=== PATIENT | male | born 1935 | race Caucasian/White ===

== ENCOUNTER → 2022-02-03 13:02 | Outpatient (BNVA) | payer MEDICARE, OTHER, SELFPAY | PROVIDERS: PCP Internal Medicine; Visit Provider Psychiatry & Neurology Neurology | DX: F03.90 Unspecified dementia, unspecified severity, without behavioral disturbance, psychotic disturbance, mood disturbance, and anxiety (principal); R26.9 Unspecified abnormalities of gait and mobility; Z79.899 Other long term (current) drug therapy | CPT/HCPCS: 99212 ==

== ENCOUNTER → 2022-05-06 13:12 | Outpatient (BNVA) | payer MEDICARE, OTHER, SELFPAY | PROVIDERS: PCP Internal Medicine; Visit Provider Psychiatry & Neurology Neurology | DX: F03.90 Unspecified dementia, unspecified severity, without behavioral disturbance, psychotic disturbance, mood disturbance, and anxiety (principal); R26.9 Unspecified abnormalities of gait and mobility | CPT/HCPCS: 99212 ==

== ENCOUNTER → 2023-01-31 13:30 | Outpatient (BNVA) | payer MEDICARE, OTHER, SELFPAY | PROVIDERS: PCP Internal Medicine; Visit Provider Psychiatry & Neurology Neurology | DX: F03.90 Unspecified dementia, unspecified severity, without behavioral disturbance, psychotic disturbance, mood disturbance, and anxiety (principal); R26.9 Unspecified abnormalities of gait and mobility | CPT/HCPCS: 99212 ==

== ENCOUNTER 2023-06-07 10:35 | Outpatient (AMB) | payer MEDICARE, OTHER, SELFPAY ==
--- NOTE | 2023-06-07 10:41 | MHC.OFFVIS ---
Intake Vital Signs 06/07/23 10:46 Height 5 ft 9 in Weight 194 lb 2 oz BMI 28.7 BP 112/68 Blood Pressure Location Rt brachial Position Sitting Respiration 15 Pulse 64 Pulse Source Pulse Oximeter Pulse Oximetry (%) 97 Oxygen Delivery Method Room Air Intake Visit Reasons: 4 mo f/u for Dementia Intake Note: Patient presents for follow up dementia. patient states he's been doing pretty good , stable. Had a fall about 3 weeks ago because he reached too far. No injuries were sustained with this fall. Granddaughter Victoria is his historian today. She is requesting PT/OT services as she thinks this may be helpful. Allergies Penicillins Allergy (Mild, Verified 06/07/23 10:45) Hives Sulfa (Sulfonamide Antibiotics) Allergy (Mild, Verified 06/07/23 10:45) Rash Medication List - Last Reconciled 06/07/23 by Sumaya Black MD amlodipine 10 mg PO DAILY carbidopa-levodopa 25-100 mg (Sinemet) 1 tab PO BID escitalopram oxalate 10 mg PO DAILY memantine (Namenda) 10 mg PO BID rivaroxaban (Xarelto) 20 mg PO QPM tamsulosin 0.4 mg PO DAILY trazodone 25 mg PO BEDTIME HPI HPI Comments History of Present Illness Details 87y/o male comes for follow up of his dementia, gait disorder issues. He walks slow , had 1 fall when he reached over from his bed . His behavior is good, he eats OK He works on cross word puzzles , helps around the house Mood is stable Independent in most ADLs. He does not exercise.He sleeps 14 hrs a day. Walking is slower. He has been better with personal hygiene. [facility] Medical History Prostate hypertrophy Pulmonary embolism Spinal stenosis Irritable bowel syndrome Depression Hyperlipidemia Surgical History History of hernia repair History of carotid endarterectomy Hx of cholecystectomy Social History Household Members: Spouse Alcohol intake: never Tobacco use type: Cigar Physical Exam Vital Signs: Last Vital Signs Pulse 64 06/07/23 10:46 Resp 15 06/07/23 10:46 BP 112/68 06/07/23 10:46 Pulse Ox 97 06/07/23 10:46 Oxygen Delivery Method Room Air 06/07/23 10:46 BMI result Body Mass Index 28.7 Const General: cooperative Nutritional Appearance: average body habitus Orientation/consciousness: patient oriented x3 Eyes Pupils: Equal, round and reactive pupils present Neuro Other: very mild bradykinesia follows commands General: patient oriented x3, tone normal and moves all extremities Cranial nerves: Yes Equal, round and reactive pupils present, Yes Bilaterally intact EOM present, Yes Normal facial strength present and Yes Midline tongue present Gait exam (Neuro): Other gait observations present (slow ) Assessment & Plan Assessment & Plan (1) Dementia: Code(s): F03.90 - Unspecified dementia, unspecified severity, without behavioral disturbance, psychotic disturbance, mood disturbance, and anxiety (2) Gait disorder: Code(s): R26.9 - Unspecified abnormalities of gait and mobility Plan Continue namenda 10mg bid sinemet 25/100 bid schedule exercise everyday in the morning. Orders: Orders PT Evaluation and Treatment Today R26.9 - Unspecified abnormalities of gait and mobility Coding Level of Care Code Est Pt Level 4 (12949) Diagnoses Dementia F03.90 Gait disorder R26.9
[2023-06-07 10:46] VITALS: BP 112/68; PULSE 64; RESP 15; O2SAT 97; BMI 28.7
== END 2023-06-07 11:02 | disposition home or self-care (01) ==
PROVIDERS: PCP Internal Medicine; Visit Provider Psychiatry & Neurology Neurology
DX: F03.90 Unspecified dementia, unspecified severity, without behavioral disturbance, psychotic disturbance, mood disturbance, and anxiety (principal); R26.9 Unspecified abnormalities of gait and mobility
CPT/HCPCS: 99214

== ENCOUNTER → 2023-06-07 10:35 | Outpatient (BNVA) | payer MEDICARE, OTHER, SELFPAY | PROVIDERS: PCP Internal Medicine; Visit Provider Psychiatry & Neurology Neurology | DX: F03.90 Unspecified dementia, unspecified severity, without behavioral disturbance, psychotic disturbance, mood disturbance, and anxiety (principal); R26.9 Unspecified abnormalities of gait and mobility; Z79.899 Other long term (current) drug therapy | CPT/HCPCS: 99212 ==

== ENCOUNTER 2024-05-17 15:23 | Outpatient (AMB) | payer MEDICARE, OTHER, SELFPAY ==
--- NOTE | 2024-05-17 15:26 | A.OFFVIS_ITS ---
Vital Signs 05/17/24 15:30 Height 5 ft 9 in Weight 195 lb 8 oz BMI 28.9 BP 100/60 Blood Pressure Location Rt brachial Position Sitting Pulse 79 Pulse Source Pulse Oximeter Pulse Oximetry (%) 96 Oxygen Delivery Method Room Air Intake Visit Reasons: Follow up Intake Note: Patient presents for a 11 mo f/u- Dementia/Gait Disorder. Sheet Tailer Required: No Accompanied by: Other Relationship Allergies Penicillins Allergy (Mild, Verified 05/17/24 15:27) Hives Sulfa (Sulfonamide Antibiotics) Allergy (Mild, Verified 05/17/24 15:27) Rash HPI Comments Details: 88y/o male comes for follow up of his dementia, gait disorder issues. 1 month ago he woke up and was unable to sit up and stand - looked like he forgot how to get up . The whole day he was unstable and off balance. He has been fine since then He walks slow . His behavior is good, he eats OK He gets upset with his clinical trial assistant when she requests him to do some activities. He works on cross word puzzles , helps around the house Mood is stable Independent in most ADLs.He sleeps 14 hrs a day. Walking is slower. He has been better with personal hygiene. 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 [facility] Medical History Prostate hypertrophy Pulmonary embolism Spinal stenosis Irritable bowel syndrome Depression Hyperlipidemia Surgical History History of hernia repair History of carotid endarterectomy Hx of cholecystectomy Social History Household Members: Spouse Alcohol intake: never Tobacco use type: Cigar Physical Exam Vital Signs: Last Vital Signs Pulse 79 05/17/24 15:30 BP 100/60 05/17/24 15:30 Pulse Ox 96 05/17/24 15:30 Oxygen Delivery Method Room Air 05/17/24 15:30 BMI result Body Mass Index 28.9 Const General: cooperative Nutritional Appearance: average body habitus Orientation/consciousness: patient oriented x3 Eyes Pupils: Equal, round and reactive pupils present Neuro Other: very mild bradykinesia follows commands right UE rest tremors Mild off balance General: patient oriented x3, tone normal and moves all extremities Cranial nerves: Yes Equal, round and reactive pupils present, Yes Bilaterally intact EOM present, Yes Normal facial strength present and Yes Midline tongue present Gait exam (Neuro): Other gait observations present (slow ) Assessment & Plan Assessment & Plan (1) Dementia: Code(s): F03.90 - Unspecified dementia, unspecified severity, without behavioral disturbance, psychotic disturbance, mood disturbance, and anxiety Category: Medical (2) Gait disorder: Code(s): R26.9 - Unspecified abnormalities of gait and mobility Category: Medical Plan Continue namenda 10mg bid sinemet 25/100 bid use cane consistently schedule exercise everyday in the morning. Coding Level of Care Code Est Pt Level 4 (27029) Diagnoses Dementia F03.90 Gait disorder R26.9
[2024-05-17 15:30] VITALS: BP 100/60; PULSE 79; O2SAT 96; BMI 28.9
== END 2024-05-17 15:53 | disposition home or self-care (01) ==
PROVIDERS: PCP Internal Medicine; Visit Provider Psychiatry & Neurology Neurology
DX: F03.90 Unspecified dementia, unspecified severity, without behavioral disturbance, psychotic disturbance, mood disturbance, and anxiety (principal); R26.9 Unspecified abnormalities of gait and mobility
CPT/HCPCS: 99214

== ENCOUNTER → 2024-05-17 15:23 | Outpatient (BNVA) | payer MEDICARE, OTHER, SELFPAY | PROVIDERS: PCP Internal Medicine; Visit Provider Psychiatry & Neurology Neurology | DX: F03.90 Unspecified dementia, unspecified severity, without behavioral disturbance, psychotic disturbance, mood disturbance, and anxiety (principal); R26.9 Unspecified abnormalities of gait and mobility | CPT/HCPCS: 99212 ==

== ENCOUNTER 2024-12-20 14:55 | Outpatient (AMB) | payer MEDICARE, OTHER, SELFPAY ==
--- NOTE | 2024-12-20 15:11 | A.OFFVIS_ITS ---
Vital Signs 12/20/24 15:12 Height 5 ft 9 in Weight 194 lb BMI 28.6 BP 106/72 Blood Pressure Location Rt brachial Position Sitting Pulse 73 Pulse Source Pulse Oximeter Pulse Oximetry (%) 95 Oxygen Delivery Method Room Air Intake Visit Reasons: Follow up 6mo-LVM Intake Note: Patient presents for dementia Allergies Penicillins Allergy (Mild, Verified 05/17/24 15:27) Hives Sulfa (Sulfonamide Antibiotics) Allergy (Mild, Verified 05/17/24 15:27) Rash HPI Comments Details: 89y/o male comes for follow up of his dementia, gait disorder issues. He is accompanied by his family friend today . He had 1 fall down the stairs at home ( night ) .He had another fall 1 week ago in a restaurant. There was also an episode of confusion, mumbling lasting for 2 days last week. His behavior is good, he eats OK He gets upset when his Farideh talks about exercising He works on cross word puzzles , helps around the house Mood is stable Independent in most ADLs.He sleeps 14 hrs a day. Walking is slower. He has been better with personal hygiene. 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 [facility] Medical History Prostate hypertrophy Pulmonary embolism Spinal stenosis Irritable bowel syndrome Depression Hyperlipidemia Surgical History History of hernia repair History of carotid endarterectomy Hx of cholecystectomy Social History Household Members: Spouse Alcohol intake: never Tobacco use type: Cigar Physical Exam Vital Signs: Last Vital Signs Pulse 73 12/20/24 15:12 BP 106/72 12/20/24 15:12 Pulse Ox 95 12/20/24 15:12 Oxygen Delivery Method Room Air 12/20/24 15:12 BMI result Body Mass Index 28.6 Const General: cooperative Nutritional Appearance: average body habitus Orientation/consciousness: patient oriented x3 Eyes Pupils: Equal, round and reactive pupils present Neuro Other: very mild bradykinesia follows commands No tremors today Mild off balance, slow General: patient oriented x3, tone normal and moves all extremities Cranial nerves: Yes Equal, round and reactive pupils present, Yes Bilaterally intact EOM present, Yes Normal facial strength present and Yes Midline tongue present Cognition (Neuro): abnormal cognition Gait exam (Neuro): Other gait observations present (slow ) Orientation What is the (year) (season) (date) (day) (month)?: month Where are we (state) (county) (town or city) (hospital) (floor)?: state, town or city, hospital/clinic and floor Registration Name of 3 unrelated objects clearly and slowly, then ask patient to repeat all 3 of them. (1st repeat determines score. Make sure they can repeat all three): object 1, object 2 and object 3 Attention & Calculation (CHOOSE ONE) Spell WORLD backwards (DLROW): 5 letters Language Show patient a wristwatch & ask what it is. Repeat for pencil.: watch and pencil Ask the patient to 'take a piece of paper with their right hand' 'fold paper in half' 'place paper on floor': take paper in right hand and fold paper in half Print the sentence 'CLOSE YOUR EYES' on a piece. If patient actually closes eyes then score.: followed written direction Give patient a blank piece of paper & ask to write a sentence. Score if it contains a noun & verb.: sentence contains subject and verb Score Score: 19 Assessment & Plan Assessment & Plan (1) Dementia: Code(s): F03.90 - Unspecified dementia, unspecified severity, without behavioral disturbance, psychotic disturbance, mood disturbance, and anxiety Category: Medical Qualifiers: Dementia type: unspecified type Dementia severity: moderate Dementia behavioral or psychological symptom: without behavioral, psychotic, or mood disturbance or anxiety Qualified Code(s): F03.B0 - Unspecified dementia, moderate, without behavioral disturbance, psychotic disturbance, mood disturbance, and anxiety (2) Gait disorder: Code(s): R26.9 - Unspecified abnormalities of gait and mobility Category: Medical Plan Continue namenda 10mg bid sinemet 25/100 bid use cane consistently Limit exercise to brief perioids due to spinal stenosis Coding Level of Care Code Est Pt Level 4 (76416) Complex EM visit Add On G2211 Diagnoses Moderate dementia without behavioral disturbance, psychotic disturbance, mood disturbance, or anxiety, unspecified dementia type F03.B0 Dementia type: unspecified type Dementia severity: moderate Dementia behavioral or psychological symptom: without behavioral, psychotic, or mood disturbance or anxiety Gait disorder R26.9
[2024-12-20 15:12] VITALS: BP 106/72; PULSE 73; O2SAT 95; BMI 28.6
== END 2024-12-20 15:36 | disposition home or self-care (01) ==
LOC: HO.HSMS 14:56
PROVIDERS: PCP Internal Medicine; Visit Provider Psychiatry & Neurology Neurology
DX: F03.B0 Unspecified dementia, moderate, without behavioral disturbance, psychotic disturbance, mood disturbance, and anxiety (principal); R26.9 Unspecified abnormalities of gait and mobility
CPT/HCPCS: 99214; G2211

== ENCOUNTER → 2024-12-20 14:55 | Outpatient (BNVA) | payer MEDICARE, OTHER, SELFPAY | PROVIDERS: PCP Internal Medicine; Visit Provider Psychiatry & Neurology Neurology | DX: R26.9 Unspecified abnormalities of gait and mobility (principal); F03.B0 Unspecified dementia, moderate, without behavioral disturbance, psychotic disturbance, mood disturbance, and anxiety | CPT/HCPCS: 99212 ==

== ENCOUNTER 2025-06-24 15:06 | Outpatient (AMB) | payer MEDICARE, OTHER, SELFPAY ==
--- OUTSIDE RECORDS SUMMARY | 2024-05-09 12:00 | XMS_ITS ---
Author Organization [facility] Address [address] [place] [address] Care Team Providers Care Mold Hoister Name Role Phone Christy Franco Primary Care Provider UnavailOseas Roberts Unavailable [phone] Encounters Encounter Location Date Provider Diagnosis [facility] [address] [place] [phone] 05/09/2024 Oseas Tineo Plan Of Treatment Next Appt Details Provider Name:Oseas Tineo , 08/08/2025 03:00:00 PM, [address] [place] [address], [phone], Progress Notes * Manny MONTESDOB:1935 (89 yo M)Acc No.[id number]:05/09/2024 Progress Note Patient: Katharina GUNNValerieManny Provider: Donis Tineo DPM :1935 A ge:88 Y S ex:Male Date:05/09/2024 Address:[address] [place], [place] [address] [phone] Pcp:Christy Franco Subjective: * Chief Complaints: * * Medical History: Objective: * Vitals: Assessment: Plan: * Treatment: * Images: * The named appointment provid er may or may not be the originator of this progress note, and it is not deemed complete until electronically signed by the appointment provider. Sign off status: Pending * Provider: Donis Tineo DPM Date: 0 05/09/2024 Generated for David lau/Sheba on: 1 06:28 PM EDT
--- NOTE | 2025-06-24 15:11 | MHC.OFFVIS ---
Vital Signs 06/24/25 15:11 06/24/25 15:15 Height 5 ft 9 in 5 ft 9 in Weight 196 lb 4 oz BMI 29.0 BP 112/70 Blood Pressure Location Lt brachial Rt brachial Position Sitting Sitting Pulse 83 Pulse Source Pulse Oximeter Pulse Oximeter Pulse Oximetry (%) 96 Oxygen Delivery Method Room Air Room Air Intake Visit Reasons: 6 mo follow up Intake Note: Patient presents follow up Dementia Superintendent [employer] Required: No Accompanied by: Friend of the family Allergies Penicillins Allergy (Mild, Verified 06/24/25 15:15) Hives Sulfa (Sulfonamide Antibiotics) Allergy (Mild, Verified 06/24/25 15:15) Rash HPI Comments Details: 89y/o male comes for follow up of his dementia, and gait disorder issues. He is accompanied by his family friend Roxanne who helps with history. H/O Parkinsons disease on sinemet / CD/LD 1 tablet BID. PCP Christy Luke in 2024 He forgets to lift his r. foot, has bilateral edema, family notices he is dragging the foot, with pauses, and shuffling of feet. He denies falls. He has gait instability and leans to the right as if he will fall over. His recently broke her sacrum, and his children are now living with them for 24 hour on-going care. His eyes are puffy, retaining water and he does not have allergies. He is a good sleeper, can sleep for 14 hours. He has bph and wakes up 2x a night for bathroom breaks. He gets confused, forgets, repeats then mumbles for days. He has sun downing, mood is stable, good behavior. Denies drooling. He has dysphagia to solids, mainly rice. Needs to have liquids mixed with the rice. He can swallow, he has to chew slowly. He walks around the house though is not very active. He works on cross word puzzles, helps around the house. RLS denies Independent in most ADLs with supervision and assistance from WELDING LEAD BURNER, he is able to dress, shower, and feed himself. Walking is slower. Ambulates without devices, cane, or rolling walker. [facility] Medical History Prostate hypertrophy Pulmonary embolism Spinal stenosis Irritable bowel syndrome Depression Hyperlipidemia Surgical History History of hernia repair History of carotid endarterectomy Hx of cholecystectomy Social History Household Members: Spouse Alcohol intake: never Tobacco use type: Cigar Review of Systems ENT Reports Normal hearing present Neuro Reports Normal hearing present Physical Exam Vital Signs: Last Vital Signs Pulse 83 06/24/25 15:15 BP 112/70 06/24/25 15:15 Pulse Ox 96 06/24/25 15:15 Oxygen Delivery Method Room Air 06/24/25 15:15 BMI result Body Mass Index 29.0 Const General: cooperative Nutritional Appearance: average body habitus Orientation/consciousness: oriented to place Eyes Pupils: Equal, round and reactive pupils present Neuro Other: very mild bradykinesia Rigidity in bilateral upper ext. follows commands No tremors today hand alternating movements decreased foot taps decreased off balance, stooped posture leans to the right, shuffling of feet, slow to turn. General: oriented to place, tone normal and moves all extremities Cranial nerves: Yes Equal, round and reactive pupils present, Yes Bilaterally intact EOM present, Yes Normal facial strength present, Yes Midline tongue present, Yes Normal hearing present, Yes Ability to bilaterally rotate head present and Yes Ability to bilaterally elevate shoulders present Cognition (Neuro): abnormal cognition Gait exam (Neuro): Shuffling gait present and Other gait observations present (slow ) Motor exam (neuro): Abnormal motor strength present and Abnormal muscle tone present Coordination: [id number] test normal (dysmetria) Psych Appearance: well kempt Speech and movement: Slowed movement present (Neuro) Attitude: cooperative Thought content: Normal thought content present Insight: Fair insight present (Psych) Judgement: Fair judgement present (Psych) Assessment & Plan Assessment & Plan (1) Gait disorder: Code(s): R26.9 - Unspecified abnormalities of gait and mobility Category: Medical (2) Spinal stenosis: Code(s): M48.00 - Spinal stenosis, site unspecified Category: Medical Qualifiers: Spinal region: lumbar Neurogenic claudication status: unspecified Qualified Code(s): M48.061 - Spinal stenosis, lumbar region without neurogenic claudication (3) Excessive daytime sleepiness: Code(s): G47.19 - Other hypersomnia Category: Medical Plan AD Continue namenda 10mg bid, may increase to 14mg po BID if HCP agrees. Parkinsons disorder sinemet 25/100 bid to TID if HCP agrees. use cane consistently Limit exercise to brief periods due to spinal stenosis PT -2x a Roxanne will work with him at home as tolerable, low intensity, gentle exercises. Shuffling of feet and leaning to the right- balance- gait instability start PT labs to complete will request recent labs from his pcp Christy Pham 3month f/u Orders: Orders Complete Blood Count no Diff Today G47.19 - Other hypersomnia Hemoglobin A1c Today G47.19 - Other hypersomnia Vitamin B12 and Folate Today G47.19 - Other hypersomnia TSH reflex Free T4 Today G47.19 - Other hypersomnia PT Evaluation and Treatment Today M48.00 - Spinal stenosis, site unspecified, R26.9 - Unspecified abnormalities of gait and mobility Comprehensive Met. Panel Today G47.19 - Other hypersomnia Ferritin Today G47.19 - Other hypersomnia Methylmalonic Acid Today G47.19 - Other hypersomnia, G47.9 - Sleep disorder, unspecified, R53.83 - Other fatigue IRON PROFILE Today G47.19 - Other hypersomnia, G47.9 - Sleep disorder, unspecified, R53.83 - Other fatigue Homocysteine Today G47.19 - Other hypersomnia, G47.9 - Sleep disorder, unspecified, R53.83 - Other fatigue Lipid Panel with Reflex Today G47.19 - Other hypersomnia Vitamin D 25-OH Total Today G47.19 - Other hypersomnia Parathyroid Hormone Intact Today G47.19 - Other hypersomnia Patient Instructions: Sleep Hygiene provided: set a scheduled bedtime and wake time to help regulate the circadian rhythm and balance the release of pituitary hormones. Sleep in a dark room, temperatures below 68 degrees, and no devices n bed. Limit caffeinated products 6 hours prior to bed, and limit fluids 2-4 hours prior to bed. Gentle night yoga, diffusing essential oils, and playing soft music can be relaxing. Coding Level of Care Code Est Pt Level 4 (30743) Diagnoses Gait disorder R26.9 Spinal stenosis of lumbar region, unspecified whether neurogenic claudication present M48.061 Spinal region: lumbar Neurogenic claudication status: unspecified Excessive daytime sleepiness G47.19
[2025-06-24 15:15] VITALS: BP 112/70; PULSE 83; O2SAT 96; BMI 29.0
--- OUTSIDE RECORDS SUMMARY | 2025-06-24 18:29 | XMS_ITS | Patient Health Record ---
Author Organization [facility] Address [address] [place] [address] Care Team Providers Care Records Management Clerk Name Role Phone Christy Franco Primary Care Provider Oseas Jones Unavailable [phone] Allergies Allergen (clinical drug ingredient) Drug/Non Drug Allergy documented on EMR Reaction Allergy Type Onset Date Status Penicillin Unknown Drug Allergy Active Substance with sulfonamide structure and antibacterial mechanism of action (substance) Sulfa Antibiotics hives Drug Allergy Active Reason For Referral No Information Medications Medication SIG (Take, Route, Frequency, Duration) Notes Start Date End Date Status Tamsulosin HCl Activ e Memantine HCl Active Escitalopram Oxalate 10 MG 1 tablet Orally Once a day Active Carbidopa Active Ammonium Lactate 12 % 1 application Externally to affected areas of dry skin to feet except for between the toes Twice a day; Duration: 30 days Not-Taking Xarelto 20 MG 1 tablet with food Orally Once a day Active traZODone HCl 50 MG 1 tablet at bedtime as needed Orally Once a day Active Immunizations Vaccine Route Administration Date Status Comme nts Influenza Unknown 05/01/2024 Administered Social History Tobacco Use: Social History Observation Description Date Details (start date - stop date) Never Smoker NA - NA Alcohol Screen Question Answer Notes Did you have a drink containing alcohol in the p ast year? No Points 0 Interpretation Negative Tobacco use other than smoking: Question Answer Notes Are you an other tobacco user? No Tobacco Control (Standard) Question Answer Notes Tobacco use: Nonsmoker Additional Findings: Tobacco non-user Current no nsmoker AUDIT-C (Standard) Question Answer Notes Did you have a drink containing alcohol in the p ast year? No Points 0 Interpretation Negative Problems Problem Type SNOMED Code ICD Code Onset Dates Problem Status W/U Status Risk Notes Problem Bilateral atherosclerosis of arteries of lower limbs (disorder) ([id number] ) Atherosclerosis of hoopa artery of both lower extremities, with unspecified presence of clinical manifestation (I70.203) Active confirmed Q7(A), Q8(2B), Q9(1B,2 C) Vital Signs Blood pressure diastolic 84 mm Hg 04/25/2025 Height 5ft 9 in in 04/25/2025 Blood pressure systolic 134 mm Hg 04/25/2025 Weight 197 lbs 04/25/2025 BMI 29.09 kg/m2 04/25/2025 Procedures Procedure Date Ordered Date Performed Result Body Sit e 18418-BYYPRGK NAIL, 1-5 07/23/2024 N/A 96493-SVZC SKIN LESIONS, 2 TO 4 07/23/2024 N/A A1459-OROGQISJ DYSTROPHIC NAILS ANY # 07/23/2024 N/A 85478-ELZYCOW NAIL, 1-5 10/25/2024 N/A 69742-SKTV SKIN LESIONS, 2 TO 4 10/25/2024 N/A M2607-BMOURLME DYSTROPHIC NAILS ANY # 10/25/2024 N/A 39665-WWSCCXE NAIL, 1-5 01/24/2025 N/A 71525-RESX SKIN LESIONS, 2 TO 4 01/24/2025 N/A N7275-HCRCZLPE DYSTROPHIC NAILS ANY # 01/24/2025 N/A 36316-DQOALNI NAIL, 1-5 04/25/2025 N/A 78277-BTZM SKIN LESIONS, 2 TO 4 04/25/2025 N/A L9272-NAUNEEIO DYSTROPHIC NAILS ANY # 04/25/2025 N/A Encounters Encounter Location Date [facility] [address] 07/23/2024 Oseas Tineo Atherosclerosis of hoopa artery of both lower extremities, with unspecified presence of clinical manifestation I70.203 ; Tinea unguium B35.1 ; Pain in right toe(s) M79.674 ; Pain in left toe(s) M79.675 and Xerosis of skin L85.[address] [address] 10/25/2024 Oseas Tineo Atherosclerosis of hoopa artery of both lower extremities, with unspecified presence of clinical manifestation I70.203 ; Tinea unguium B35.1 ; Pain in right toe(s) M79.674 ; Pain in left toe(s) M79.675 and Xerosis of skin L85.[address] [address] 01/24/2025 Oseasjacob Tineo Atherosclerosis of hoopa artery of both lower extremities, with unspecified presence of clinical manifestation I70.203 ; Tinea unguium B35.1 ; Pain in right toe(s) M79.674 and Pain in left toe(s) M79.[address] [address] 04/25/2025 Oseas Tineo Atherosclerosis of hoopa artery of both lower extremities, with unspecified presence of clinical manifestation I70.203 ; Tinea unguium B35.1 ; Pain in right toe(s) M79.674 and Pain in left toe(s) M79.675 Assessments Encounter Date Diagnosis (ICD Code) Assessment Notes Treatment Notes Treatment Clinical Notes Section Notes 07/23/2024 Tinea unguium (ICD-10 - B35.1) 07/23/2024 Atherosclerosis of hoopa artery of both lower extremities, with unspecified presence of clinical manifestation (ICD-10 - I70.203) Q7(A), Q8(2B), Q9(1B,2C) 10/25/2024 Tinea unguium (ICD-10 - B35.1) 10/25/2024 Atherosclerosis of hoopa artery of both lower extremities, with unspecified presence of clinical manifestation (ICD-10 - I70.203) Q7(A), Q8(2B), Q9(1B,2C) 01/24/2025 Tinea unguium (ICD-10 - B35.1) 01/24/2025 Atherosclerosis of hoopa artery of both lower extremities, with unspecified presence of clinical manifestation (ICD-10 - I70.203) Q7(A), Q8(2B), Q9(1B,2C) 04/25/2025 Tinea unguium (ICD-10 - B35.1) 04/25/2025 Atherosclerosis of hoopa artery of both lower extremities, with unspecified presence of clinical manifestation (ICD-10 - I70.203) Q7(A), Q8(2B), Q9(1B,2C) 04/25/2025 Pain in right toe(s) (ICD-10 - M79.674) 01/24/2025 Pain in right toe(s) (ICD-10 - M79.674) 10/25/2024 Pain in right toe(s) (ICD-10 - M79.674) 07/23/2024 Pain in right toe(s) (ICD-10 - M79.674) 07/23/2024 Pain in left toe(s) (ICD-10 - M79.675) 10/25/2024 Pain in left toe(s) (ICD-10 - M79.675) 01/24/2025 Pain in left toe(s) (ICD-10 - M79.675) 04/25/2025 Pain in left toe(s) (ICD-10 - M79.675) 10/25/2024 Xerosis of skin (ICD-10 - L85.3) 07/23/2024 Xerosis of skin (ICD-10 - L85.3) Plan Of Treatment Pending Test Test Name Order Date 53427-VVAITFU NAIL, 1-5 02/29/2024 35604-BBILKBI NAIL, 1-5 07/23/2024 13033-ZCQHIHN NAIL, 1-5 10/25/2024 19110-CVYABOT NAIL, 1-5 01/24/2025 69377-DCHBJSI NAIL, 1-5 04/25/2025 66840-JTUU SKIN LESIONS, 2 TO 4 04/25/20 39366-HBDC SKIN LESIONS, 2 TO 4 01/25/20 62329-CODM SKIN LESIONS, 2 TO 4 10/25/19 95386-HUJG SKIN LESIONS, 2 TO 4 02/29/20 27977-AOCU SKIN LESIONS, 2 TO 4 07/23/20 R9559-NHFBOTWA DYSTROPHIC NAILS ANY # V2087-QVPAWRXY DYSTROPHIC NAILS ANY # K9013-PLWEKTYD DYSTROPHIC NAILS ANY # Z9667-URAIMXKL DYSTROPHIC NAILS ANY # B6464-DFBTHPAN DYSTROPHIC NAILS ANY # Next Appt Details Provider Name:Oseas Tineo , 08/08/2025 03:00:00 PM, [address] [facility], [address], [place], [address], Insurance Providers Payer Name Payer Address Payer Phone Subscriber Number Group Number Insured Name Patient Relationship to Insured Coverage Start Date Coverage End Date Medicare National Govt [facility] [address] [place] [address] [id number] Manny Eldridge Self - patient is the insured [employer] [address] [place] [address] [id number] Manny Eldridge Self - patient is the insured Medical (General) History Medical History History ICD Code Chicken pox Cataracts Dementia Gall bladder problems High blood pressure Stroke Measles Mumps Surgical History Surgery Date(Month/Year) circumcision Hernia Repair 1969 Gall bladder removal 2014 Hospitalization History Reason Date(Month/Year) [facility]- shingles 12/2024 fell 09/2024 [facility] Covid 05/2024
--- OUTSIDE RECORDS SUMMARY | 2025-06-24 18:29 | XMS_ITS | Encounter Summary ---
Author Organization [facility] Address [address] [place] [address] Care Team Providers Care Denture Waxer Name Role Phone Christy Franco MD Primary Care Provider [phone] Encounter Details Date Type Department Care Team (Late st Contact Info) Description 06/30/2024 Lab Requisition [facility] - Main Lab [address] [facility] [place] [address] Jennifer Santos MD [address] [address] Disorder of lipoprotein metabolism, unspecified Social History Tobacco Use Types Packs/Day Years Used Date Smoking Tobacco: Never Assessed Sex and Gender Information Value Date Recorded Sex Assigned at Not on file Legal Sex Male 2:53 AM EST Gender Identity Not on file Sexual Orientation Not on file documented as of this encounter Plan of Treatment Not on file documented as of this encounter Visit Diagnoses Diagnosis Disorder of lipoprotein metabolism, unspecified documented in this encounter Care Teams Denture Waxer Relationship Specialty Start Date End Date Christy Franco MD PCP - General 03/06/18 documented as of this encounter
--- OUTSIDE RECORDS SUMMARY | 2025-06-24 18:29 | XMS_ITS | Clinical Summary ---
Author Organization [facility] Address [address] [address] Phone Care Team Providers Care Corporate Treasury Analyst Name Role Phone Nolan Doshi MD Primary Care Provider Unavai lable Allergies Active Allergy Reactions Criticality Noted Date Comments Penicillins Hives 05/24/2012 Sulfa (Sulfonamide Antibiotics) Angioedema 04/30 Medications DULoxetine (CYMBALTA) 60 MG capsule Take 30 mg by mouth as directed. 05/24/2012 Active atorvastatin (LIPITOR) 10 MG tablet Take 1 tablet by mouth nightly. 05/24/2012 Active gabapentin (NEURONTIN) 300 MG capsule Take 1 capsule by mouth 2 (two) times a day. Reported on 11/02/2016 07/02/2010 Active mirtazapine (REMERON) 30 MG tablet Take 30 mg by mouth nightly. Active Active Problems Problem Noted Date Diagnosed Date Raised prostate specific antigen 05/24/2012 Overview (10/19/2014): Raised prostate specific antigen Social History Tobacco Use Types Packs/Day Years Used Date Smoking Tobacco: Never Alcohol Use Standard Drinks/Week Comments Not Asked 0 (1 standard drink = 0.6 oz pur e alcohol) Education Answer Date Recorded Are you interested in more education? Not on renate e 12/26/2022 Are you concerned about learning? Not on file 12/26/2022 No 12/26/2022 No 12/26/2022 Digital Access Answer Date Recorded No 01/23/2023 No 01/23/2023 No 01/23/2023 Reliable internet access at home? Not on file 01/23/2023 Device with a working camera? Not on file Sex and Gender Information Value Date Recorded Sex Assigned at Not on file Legal Sex Male 5:03 PM EST Gender Identity Not on file Sexual Orientation Not on file Last Filed Vital Signs Vital Sign Reading Time Taken Comments Blood Pressure 138/89 11/02/2016 1:43 PM EST Pulse 86 11/02/2016 1:43 PM EST Temperature - - Respiratory Rate - - Oxygen Saturation - - Inhaled Oxygen Concentration - - Weight 88.5 kg (195 lb) 11/02/2016 1:43 PM EST Height 177.8 cm (5' 10 ) 11/02/2016 1:43 PM EST Body Mass Index 27.98 11/02/2016 1:43 PM EST Plan of Treatment Health Maintenance Due Date Last Done Comments Adult Td,Tdap Booster 1935 DEPRESSION SCREENING 1947 PNEUMOCOCCAL VACCINES (50+ years) (1 of 1 - PCV) 1986 ZOSTER VACCINES (1 of 2) 1986 RSV VACCINE (1 - 1-dose 75+ series) 12/02/2011 INFLUENZA VACCINE (#1) 2025 COVID-19 VACCINE (3 - 2024-2 6 season) 2025 10/17/2020, 09/26/2020 HEPATITIS A VACCINES Aged Out No long er eligible based on patient's age to complete this topic HIB VACCINES Aged Out No longer eligi ble based on patient's age to complete this topic MENINGOCOCCAL VACCINES (ACWY) Aged Out No longer eligible based on patient's age to complete this topic MENINGOCOCCAL VACCINES (B) Aged Out N o longer eligible based on patient's age to complete this topic Medical Devices Not on file Insurance MEDICARE PART A & B [facility] TOTAL CHOICE INDEMNITY MEDICARE PART A & B [facility] TOTAL CHOICE INDEMNITY MEDICARE PART A & B [employer] TOTAL CHOICE INDEMNITY MEDICARE PART A & B [employer] TOTAL CHOICE INDEMNITY MEDICARE PART A & B [facility] TOTAL CHOICE INDEMNITY MEDICARE PART A & B [facility] TOTAL CHOICE INDEMNITY MEDICARE PART A & B [facility] TOTAL CHOICE INDEMNITY MEDICARE PART A & B [employer] TOTAL CHOICE INDEMNITY MEDICARE PART A & B [employer] TOTAL CHOICE INDEMNITY Care Teams Corporate Treasury Analyst Relationship Specialty Start Date End Date Nolan Doshi MD PCP - General 02/26/14 Additional Source Comments The information contained in this document represents components of the legal health record. It is not the complete legal health record.[facility]
--- OUTSIDE RECORDS SUMMARY | 2025-06-24 18:29 | XMS_ITS | Clinical Summary ---
Author Organization [address] Address [address] [place] [address] Phone Care Team Providers Care Diamond Driller Helper Name Role Phone Christy Franco MD Primary Care Provider [phone] Social History Tobacco Use Types Packs/Day Years Used Date Smoking Tobacco: Never Assessed Sex and Gender Information Value Date Recorded Sex Assigned at Not on file Legal Sex Male 2:53 AM EST Gender Identity Not on file Sexual Orientation Not on file Plan of Treatment Health Maintenance Due Date Last Done Comments DTaP,Tdap,and Td Vaccines (1 - Tdap) 12/02/1954 Pneumococcal Vaccine: 50+ Ye ars (1 of 1 - PCV) 1986 Zoster Vaccines (1 of 2) 1986 RSV Immunization Adult Patie nts (1 - 1-dose 75+ series) 12/02/2011 Depression Screening 08/29/2024 COVID-19 Vaccine (1 - 2023-2 5 season) 2025 Influenza Vaccine (#1) 2025 HIB Vaccines Aged Out No longer eligi ble based on patient's age to complete this topic HPV Vaccines Aged Out No longer eligi ble based on patient's age to complete this topic Hepatitis A Vaccines Aged Out No long er eligible based on patient's age to complete this topic Hepatitis B Vaccines Aged Out No long er eligible based on patient's age to complete this topic IPV Vaccines Aged Out No longer eligi ble based on patient's age to complete this topic MMR Vaccines Aged Out No longer eligi ble based on patient's age to complete this topic Meningococcal ACWY Vaccine Aged Out N o longer eligible based on patient's age to complete this topic Meningococcal B Vaccine Aged Out No l onger eligible based on patient's age to complete this topic RSV Immunization Patients Un daniela 20 months Aged Out No longer eligible b ased on patient's age to complete this topic Varicella Vaccines Aged Out No longer eligible based on patient's age to complete this topic Care Teams Diamond Driller Helper Relationship Specialty Start Date End Date Christy Franco MD PCP - General 03/06/18
== END 2025-06-24 16:13 | disposition home or self-care (01) ==
LOC: HO.HSMS 15:07
PROVIDERS: PCP Internal Medicine; Visit Provider Physician Assistant Medical
DX: R26.9 Unspecified abnormalities of gait and mobility (principal); M48.061 Spinal stenosis, lumbar region without neurogenic claudication; G47.19 Other hypersomnia
CPT/HCPCS: 99214

== ENCOUNTER → 2025-06-24 15:06 | Outpatient (BNVA) | payer MEDICARE, OTHER, SELFPAY | PROVIDERS: PCP Internal Medicine; Visit Provider Physician Assistant Medical | DX: M48.061 Spinal stenosis, lumbar region without neurogenic claudication (principal); G47.19 Other hypersomnia; R26.9 Unspecified abnormalities of gait and mobility; R53.83 Other fatigue | CPT/HCPCS: 99212 ==